=== PATIENT | male | born 1955 | race Caucasian/White ===

== ENCOUNTER → 2020-01-14 | Outpatient (CLI) | payer BC ==
--- NOTE | 2020-01-14 10:13 | Diagnostic Imaging Report ---
Left knee at 941 hours. INDICATION: Fell, knee pain. 3 views were obtained. There are no prior studies available for comparison. FINDINGS: There is no fracture, dislocation or acute bony abnormality evident. There is mild soft tissue edema along the anterior aspect of the knee joint but there is no evidence for a fracture of the patella. The soft tissues are otherwise unremarkable. IMPRESSION: There is no evidence for an acute bony abnormality. Dictated by: Dictated on workstation # [id number]
== END ==
LOC: RAD 09:21
PROVIDERS: ATTEND Chiropractor
DX: M25.562 Pain in left knee (principal); M99.06 Segmental and somatic dysfunction of lower extremity; R29.3 Abnormal posture; W19.XXXA Unspecified fall, initial encounter
CPT/HCPCS: 73562

== ENCOUNTER 2022-12-08 06:48 | Outpatient (CLI) | payer MEDICARE, OTHER ==
[~2022-12-08] VITALS: Ht 172.7 cm; Wt 93.0 kg
[2022-12-08] MEDS ORDERED: FAMO20TA3 PO (10:09)
[2022-12-08] MEDS ORDERED: TADA2.5T PO (10:09)
[2022-12-08] MEDS ORDERED: LISI10TA25 PO ×2 (10:09)
[2022-12-08] MEDS ORDERED: MTP25TSR PO (10:09)
[2022-12-08] MEDS ORDERED: PANT40TA52 PO (10:09)
[2022-12-08] MEDS ORDERED: FLUT1DIS26 IH (10:09)
== END 2022-12-08 10:05 | disposition home or self-care (01) ==
LOC: PREOP 06:48
PROVIDERS: ATTEND Surgery
DX: Z01.818 Encounter for other preprocedural examination (principal)